=== PATIENT | male | born 1945 | race Caucasian/White ===

== ENCOUNTER 2016-09-11 14:28 | Inpatient (IN) ==
[2016-09-11] MEDS ORDERED: *HR* OxyCODONE Immed Rel 5 MG TABLET PO PRN (17:17)
[2016-09-11] MEDS ORDERED: Acetaminophen 325 MG TABLET PO PRN (17:17)
[2016-09-11] MEDS ORDERED: Bisacodyl 10 MG RECTAL SUPPOSITORY RC PRN (17:17)
[2016-09-11] MEDS ORDERED: Ondansetron ODT 4 MG TAB.RAPDIS PO PRN (17:17)
[2016-09-11] MEDS ORDERED: Albuterol 2.5 MG/3 ML NEBULIZER IH PRN (17:17)
[2016-09-11] MEDS ORDERED: Benzonatate 100 MG CAPSULE PO PRN (17:17)
[2016-09-11] MEDS: Linezolid 600 MG TABLET PO SCH (21:12)
[2016-09-11] MEDS: *HR* OxyCODONE Immed Rel 5 MG TABLET PO PRN (21:12)
[2016-09-11] MEDS: LevETIRAcetam 250 MG TABLET PO SCH (21:13)
[2016-09-11] MEDS: Ipratropium/Albuterol Neb 3 ML IH SCH (22:03)
[2016-09-11] MEDS: Budesonide/Formoterol 160/4.5 MDI IH SCH (22:03)
[2016-09-12] MEDS: MethylPREDNISolone 40 MG/ML VIAL IVP SCH ×3 (00:32→18:11)
[2016-09-12] MEDS: Ipratropium/Albuterol Neb 3 ML IH SCH ×5 (04:00→18:07)
[2016-09-12] MEDS ORDERED: *HR* Enoxaparin 40 MG/0.4 ML SYRINGE SQ SCH (06:00)
[2016-09-12 06:32] LABS: Basophils % 0.3 %; Eosinophils % 0.1 %; Hematocrit 32.1 % (37.5-50.1); Hemoglobin 10.9 g/dL (12.9-16.9); Immature Granulocytes % 2.9 % (0-4); Lymphocytes # 0.7 K/mcL (0.6-4.6); Lymphocytes % 6.3 %; Mean Corpuscular Hemoglobin 30.4 pg (28.0-33.3); Mean Corpuscular Volume 89.4 fL (83.0-100.0); Monocytes # 0.4 K/mcL (0.0-1.3); Monocytes % 3.7 %; Neutrophils # 9.6 K/mcL (1.6-8.9); Platelet Count 393 K/mcL (140-400); Red Blood Count 3.59 M/mcL (4.19-5.50); Red Cell Distribution Width 14.9 % (11.5-14.5); Segmented Neutrophils % 86.7 %
[2016-09-12 06:50] LABS: INR 1.1; Prothrombin Time 11.8 Seconds (9.4-12.1)
[2016-09-12 06:51] LABS: Activated Partial Thrombo Time 27.4 Seconds (26.0-36.0)
[2016-09-12 08:15] LABS: BUN/Creatinine Ratio 26 (6-26); Blood Urea Nitrogen 21 mg/dL (8-26); Calcium 8.7 mg/dL (8.6-10.8); Carbon Dioxide 19 mEq/L (19-29); Chloride 104 mEq/L (98-109); Glucose 107 mg/dL (70-99); Osmolality,Calculated 281 (280-300); Potassium 4.4 mEq/L (3.5-4.5); Sodium 134 mEq/L (136-145); eGFR For African Americans > 60 (> 60); eGFR For Non-African Americans > 60 (> 60)
[2016-09-12] MEDS: *HR* OxyCODONE Immed Rel 5 MG TABLET PO PRN ×2 (08:38→20:48)
[2016-09-12] MEDS: Aspirin 81 MG TAB.CHEW PO SCH (08:38)
[2016-09-12] MEDS: NIFEdipine XL (24 HR) 30 MG TAB.ER.24 PO SCH (08:38)
[2016-09-12] MEDS: Linezolid 600 MG TABLET PO SCH ×2 (08:39→20:48)
[2016-09-12] MEDS: Sennosides 8.6 MG TABLET PO SCH (08:39)
[2016-09-12] MEDS: LevETIRAcetam 250 MG TABLET PO SCH ×2 (08:39→20:49)
[2016-09-12] MEDS: Budesonide/Formoterol 160/4.5 MDI IH SCH ×2 (08:52→22:40)
[2016-09-12] MEDS ORDERED: Ipratropium/Albuterol Neb 3 ML IH PRN (16:13)
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
[2016-09-12] MEDS: Lactobacillus 1 EACH CAP.SPRINK PO SCH (20:49)
[2016-09-13] MEDS: *HR* OxyCODONE Immed Rel 5 MG TABLET PO PRN (02:58)
[2016-09-13] MEDS: *HR* Enoxaparin 40 MG/0.4 ML SYRINGE SQ SCH (06:12)
[2016-09-13] MEDS: NIFEdipine XL (24 HR) 30 MG TAB.ER.24 PO SCH (10:40)
[2016-09-13] MEDS: Aspirin 81 MG TAB.CHEW PO SCH (10:40)
[2016-09-13] MEDS: Linezolid 600 MG TABLET PO SCH ×2 (10:41→21:14)
[2016-09-13] MEDS: Lactobacillus 1 EACH CAP.SPRINK PO SCH ×2 (10:41→21:14)
[2016-09-13] MEDS: Sennosides 8.6 MG TABLET PO SCH (10:41)
[2016-09-13] MEDS: LevETIRAcetam 250 MG TABLET PO SCH ×2 (10:41→21:14)
[2016-09-13] MEDS: Budesonide/Formoterol 160/4.5 MDI IH SCH ×2 (12:01→22:03)
[2016-09-14] MEDS: *HR* Enoxaparin 40 MG/0.4 ML SYRINGE SQ SCH (05:54)
[2016-09-14] MEDS: Budesonide/Formoterol 160/4.5 MDI IH SCH ×2 (08:37→22:43)
[2016-09-14] MEDS: Aspirin 81 MG TAB.CHEW PO SCH (09:51)
[2016-09-14] MEDS: Lactobacillus 1 EACH CAP.SPRINK PO SCH ×2 (09:51→21:04)
[2016-09-14] MEDS: NIFEdipine XL (24 HR) 30 MG TAB.ER.24 PO SCH (09:51)
[2016-09-14] MEDS: Linezolid 600 MG TABLET PO SCH ×2 (09:51→21:05)
[2016-09-14] MEDS: Sennosides 8.6 MG TABLET PO SCH (09:52)
[2016-09-14] MEDS: LevETIRAcetam 250 MG TABLET PO SCH ×2 (09:52→21:04)
--- NOTE | 2016-09-14 12:45 | Internal Med Progress Note ---
Date of Encounter: 09/14/16 Time of Encounter: 12:35 - Assessment and plan (1) Left acetabular fracture Current Visit: Yes Status: Acute Assessment and plan: September 14. He has an appointment with [facility] [facility] September 17. Qualifiers: Sublocation of acetabulum: unspecified portion of acetabulum Fracture type : closed Fracture alignment: nondisplaced Fracture healing: with routine healing Qualified Code(s): S32.402D - Unspecified fracture of left acetabulum , subsequent encounter for fracture with routine healing (2) Shoulder fracture, left Current Visit: Yes Status: Acute Assessment and plan: September 14. As above. Qualifiers: Encounter type: subsequent encounter Fracture healing: with routine healing Qualified Code(s): S42.92XD - Fracture of left shoulder girdle, part unspecified, subsequent encounter for fracture with routine healing (3) Pneumonia Current Visit: No Status: Acute Assessment and plan: September 14. We will check blood work in a.m. and discontinue antibiotics if stable. Qualifiers: Pneumonia type: due to unspecified organism Laterality: bilateral Lung location: lower lobe of lung Qualified Code(s): J18.9 - Pneumonia, unspecified organism (4) HTN (hypertension) Current Visit: No Status: Chronic Assessment and plan: September 14. Continue Lopressor, Cozaar, and Procardia. Blood pressures show significant fluctuation. Qualifiers: Hypertension type: essential hypertension Qualified Code(s): I10 - Essential (primary) hypertension - Subjective Interval history: September 14. He has no new complaints and feels stronger - Constitutional Vitals: Temp Pulse Resp BP Pulse Ox 98.1 F 86 16 143/80 96 09/13/16 19:12 09/14/16 09:00 09/14/16 09:00 09/14/16 09:00 09/14/16 09:00 Exam: He is resting comfortably in bed and appears in no pain. His affect is bright and cheerful. I reviewed his medications and lab results. Internal Medicine: Result - Labs CBC & Chem 7: 09/12/16 06:15 09/12/16 06:15 - ABG Interpretation ABG results: PT/INR, D-dimer PT 11.8 Seconds (9.4-12.1) 09/12/16 06:15 - VTE Documentation of Mechanical Device: Graduated compression elastic hosiery Consult Discharge Plan - Plan Referrals: Aiyana Darden DO [Primary Care Provider] - 1 week
[2016-09-14] MEDS: *HR* OxyCODONE Immed Rel 5 MG TABLET PO PRN ×2 (12:46→23:19)
[2016-09-15] MEDS: *HR* Enoxaparin 40 MG/0.4 ML SYRINGE SQ SCH (07:07)
[2016-09-15] MEDS: *HR* OxyCODONE Immed Rel 5 MG TABLET PO PRN (07:07)
[2016-09-15] MEDS: Aspirin 81 MG TAB.CHEW PO SCH (09:43)
[2016-09-15] MEDS: LevETIRAcetam 250 MG TABLET PO SCH ×2 (09:43→21:20)
[2016-09-15] MEDS: Lactobacillus 1 EACH CAP.SPRINK PO SCH ×2 (09:44→21:20)
[2016-09-15] MEDS: NIFEdipine XL (24 HR) 30 MG TAB.ER.24 PO SCH (09:44)
[2016-09-15] MEDS: Linezolid 600 MG TABLET PO SCH ×2 (09:45→21:20)
[2016-09-15] MEDS: Sennosides 8.6 MG TABLET PO SCH (09:45)
[2016-09-15] MEDS: Budesonide/Formoterol 160/4.5 MDI IH SCH ×2 (10:51→22:22)
[2016-09-16] MEDS: *HR* OxyCODONE Immed Rel 5 MG TABLET PO PRN ×3 (00:29→21:08)
[2016-09-16] MEDS: Lactobacillus 1 EACH CAP.SPRINK PO SCH (08:01)
[2016-09-16] MEDS: *HR* Enoxaparin 40 MG/0.4 ML SYRINGE SQ SCH (08:01)
[2016-09-16] MEDS: NIFEdipine XL (24 HR) 30 MG TAB.ER.24 PO SCH (08:01)
[2016-09-16] MEDS: Aspirin 81 MG TAB.CHEW PO SCH (08:01)
[2016-09-16] MEDS: Linezolid 600 MG TABLET PO SCH (08:02)
[2016-09-16] MEDS: Sennosides 8.6 MG TABLET PO SCH (08:02)
[2016-09-16] MEDS: LevETIRAcetam 250 MG TABLET PO SCH ×2 (08:02→21:10)
[2016-09-16] MEDS: Budesonide/Formoterol 160/4.5 MDI IH SCH ×2 (10:22→22:04)
--- NOTE | 2016-09-16 11:59 | Internal Med Progress Note ---
Date of Encounter: 09/16/16 Time of Encounter: 11:50 - Assessment and plan (1) Left acetabular fracture Current Visit: Yes Status: Acute Assessment and plan: September 14. He has an appointment with [facility] staff September 17. September 16. He is scheduled to see Dr. Day of [facility] this afternoon. Qualifiers: Sublocation of acetabulum: unspecified portion of acetabulum Fracture type : closed Fracture alignment: nondisplaced Fracture healing: with routine healing Qualified Code(s): S32.402D - Unspecified fracture of left acetabulum , subsequent encounter for fracture with routine healing (2) Shoulder fracture, left Current Visit: Yes Status: Acute Assessment and plan: September 14. As above. September 16. He sees the orthopedist today. Qualifiers: Encounter type: subsequent encounter Fracture healing: with routine healing Qualified Code(s): S42.92XD - Fracture of left shoulder girdle, part unspecified, subsequent encounter for fracture with routine healing (3) Pneumonia Current Visit: No Status: Acute Assessment and plan: September 14. We will check blood work in a.m. and discontinue antibiotics if stable. September 16. We will discontinue antibiotics. Qualifiers: Pneumonia type: due to unspecified organism Laterality: bilateral Lung location: lower lobe of lung Qualified Code(s): J18.9 - Pneumonia, unspecified organism (4) HTN (hypertension) Current Visit: No Status: Chronic Assessment and plan: September 14. Continue Lopressor, Cozaar, and Procardia. Blood pressures show significant fluctuation. Qualifiers: Hypertension type: essential hypertension Qualified Code(s): I10 - Essential (primary) hypertension - Subjective Interval history: September 14. He has no new complaints and feels stronger September 16. He has no complaints and feels he is making progress. - Constitutional Vitals: Temp Pulse Resp BP Pulse Ox 97.9 F 79 16 113/57 94 09/15/16 18:00 09/15/16 18:00 09/15/16 22:22 09/15/16 18:00 09/15/16 22:22 Exam: He is resting comfortably in bed in no acute distress. His affect is bright and cheerful. I reviewed his medications and lab results. Internal Medicine: Result - Labs CBC & Chem 7: 09/12/16 06:15 09/12/16 06:15 - ABG Interpretation ABG results: PT/INR, D-dimer PT 11.8 Seconds (9.4-12.1) 09/12/16 06:15 - VTE Documentation of Mechanical Device: Graduated compression elastic hosiery Consult Discharge Plan - Plan Referrals: Aiyana Darden DO [Primary Care Provider] - 1 week
[2016-09-17] MEDS: *HR* Enoxaparin 40 MG/0.4 ML SYRINGE SQ SCH (06:45)
[2016-09-17] MEDS: Sennosides 8.6 MG TABLET PO SCH (08:21)
[2016-09-17] MEDS: LevETIRAcetam 250 MG TABLET PO SCH ×2 (09:05→22:35)
[2016-09-17] MEDS: NIFEdipine XL (24 HR) 30 MG TAB.ER.24 PO SCH (09:06)
[2016-09-17] MEDS: Aspirin 81 MG TAB.CHEW PO SCH (09:07)
[2016-09-17] MEDS: Budesonide/Formoterol 160/4.5 MDI IH SCH ×2 (10:12→23:24)
[2016-09-17] MEDS: *HR* OxyCODONE Immed Rel 5 MG TABLET PO PRN (22:47)
[2016-09-18] MEDS: *HR* Enoxaparin 40 MG/0.4 ML SYRINGE SQ SCH (06:01)
[2016-09-18] MEDS: Sennosides 8.6 MG TABLET PO SCH (08:37)
[2016-09-18] MEDS: LevETIRAcetam 250 MG TABLET PO SCH ×2 (08:37→21:31)
[2016-09-18] MEDS: NIFEdipine XL (24 HR) 30 MG TAB.ER.24 PO SCH (08:37)
[2016-09-18] MEDS: Aspirin 81 MG TAB.CHEW PO SCH (08:38)
[2016-09-18] MEDS: Budesonide/Formoterol 160/4.5 MDI IH SCH ×2 (10:08→21:56)
[2016-09-18] MEDS: *HR* OxyCODONE Immed Rel 5 MG TABLET PO PRN (21:33)
[2016-09-19] MEDS: *HR* OxyCODONE Immed Rel 5 MG TABLET PO PRN ×2 (01:08→20:38)
[2016-09-19] MEDS: *HR* Enoxaparin 40 MG/0.4 ML SYRINGE SQ SCH (06:19)
[2016-09-19] MEDS: LevETIRAcetam 250 MG TABLET PO SCH ×2 (08:33→20:36)
[2016-09-19] MEDS: Sennosides 8.6 MG TABLET PO SCH (08:33)
[2016-09-19] MEDS: Aspirin 81 MG TAB.CHEW PO SCH (08:33)
[2016-09-19] MEDS: NIFEdipine XL (24 HR) 30 MG TAB.ER.24 PO SCH (08:33)
[2016-09-19] MEDS: Budesonide/Formoterol 160/4.5 MDI IH SCH ×2 (09:52→22:55)
--- NOTE | 2016-09-19 15:52 | Internal Med Progress Note ---
Date of Encounter: 09/19/16 Time of Encounter: 15:40 - Assessment and plan (1) Left acetabular fracture Current Visit: Yes Status: Acute Assessment and plan: September 14. He has an appointment with [facility] staff September 17. September 16. He is scheduled to see Dr. Day of [facility] this afternoon. September 19. He was told to remain NWB. His reports she received a call from a [facility] the evening of September 17 commenting a subcapital fracture may have been seen on original x-rays. She will call [facility] tomorrow after the films have been reviewed Qualifiers: Sublocation of acetabulum: unspecified portion of acetabulum Fracture type : closed Fracture alignment: nondisplaced Fracture healing: with routine healing Qualified Code(s): S32.402D - Unspecified fracture of left acetabulum , subsequent encounter for fracture with routine healing (2) Shoulder fracture, left Current Visit: Yes Status: Acute Assessment and plan: September 14. As above. September 16. He sees the orthopedist today. September 19. Continue immobilization sling Qualifiers: Encounter type: subsequent encounter Fracture healing: with routine healing Qualified Code(s): S42.92XD - Fracture of left shoulder girdle, part unspecified, subsequent encounter for fracture with routine healing (3) Pneumonia Current Visit: No Status: Acute Assessment and plan: September 14. We will check blood work in a.m. and discontinue antibiotics if stable. September 16. We will discontinue antibiotics. Qualifiers: Pneumonia type: due to unspecified organism Laterality: bilateral Lung location: lower lobe of lung Qualified Code(s): J18.9 - Pneumonia, unspecified organism (4) HTN (hypertension) Current Visit: No Status: Chronic Assessment and plan: September 14. Continue Lopressor, Cozaar, and Procardia. Blood pressures show significant fluctuation. September 19. Continue present medications. Blood pressures have stabilized. Qualifiers: Hypertension type: essential hypertension Qualified Code(s): I10 - Essential (primary) hypertension - Subjective Interval history: September 14. He has no new complaints and feels stronger September 16. He has no complaints and feels he is making progress. September 19. He has no new complaints - Constitutional Vitals: Temp Pulse Resp BP Pulse Ox 97.8 F 89 15 135/82 97 09/19/16 06:54 09/19/16 06:54 09/19/16 09:53 09/19/16 06:54 09/19/16 09:53 Exam: He is resting comfortably in bed and appears in no acute distress. His affect is bright and cheerful. I reviewed his medications and lab results. Internal Medicine: Result - Labs CBC & Chem 7: 09/12/16 06:15 09/12/16 06:15 - ABG Interpretation ABG results: PT/INR, D-dimer PT 11.8 Seconds (9.4-12.1) 09/12/16 06:15 - VTE Documentation of Mechanical Device: Graduated compression elastic hosiery Consult Discharge Plan - Plan Referrals: Aiyana Darden DO [Primary Care Provider] - 1 week
[2016-09-20] MEDS: *HR* Enoxaparin 40 MG/0.4 ML SYRINGE SQ SCH (06:17)
[2016-09-20] MEDS: Aspirin 81 MG TAB.CHEW PO SCH (08:23)
[2016-09-20] MEDS: NIFEdipine XL (24 HR) 30 MG TAB.ER.24 PO SCH (08:24)
[2016-09-20] MEDS: LevETIRAcetam 250 MG TABLET PO SCH ×2 (08:24→20:04)
[2016-09-20] MEDS: Sennosides 8.6 MG TABLET PO SCH (08:24)
[2016-09-20] MEDS: Budesonide/Formoterol 160/4.5 MDI IH SCH ×2 (10:55→20:16)
[2016-09-20] MEDS: *HR* OxyCODONE Immed Rel 5 MG TABLET PO PRN (20:05)
[2016-09-21] MEDS: *HR* OxyCODONE Immed Rel 5 MG TABLET PO PRN ×2 (01:27→21:30)
[2016-09-21] MEDS: *HR* Enoxaparin 40 MG/0.4 ML SYRINGE SQ SCH (06:21)
[2016-09-21] MEDS: Aspirin 81 MG TAB.CHEW PO SCH (10:10)
[2016-09-21] MEDS: NIFEdipine XL (24 HR) 30 MG TAB.ER.24 PO SCH (10:11)
[2016-09-21] MEDS: Sennosides 8.6 MG TABLET PO SCH (10:11)
[2016-09-21] MEDS: LevETIRAcetam 250 MG TABLET PO SCH ×2 (10:12→20:53)
[2016-09-21] MEDS: Budesonide/Formoterol 160/4.5 MDI IH SCH (10:42)
[2016-09-21] MEDS: Nystatin SUSP 5 ML UD.LIQ PO SCH ×3 (13:51→20:51)
--- NOTE | 2016-09-21 14:34 | Internal Med Progress Note ---
Date of Encounter: 09/21/16 Time of Encounter: 14:25 - Assessment and plan (1) Left acetabular fracture Current Visit: Yes Status: Acute Assessment and plan: September 14. He has an appointment with [facility] staff September 17. September 16. He is scheduled to see Dr. Day of [facility] this afternoon. September 19. He was told to remain NWB. His reports she received a call from a [facility] the evening of September 17 commenting a subcapital fracture may have been seen on original x-rays. She will call [facility] tomorrow after the films have been reviewed September 21. Continue nonweightbearing status. He will need a hospital bed, drop arm bedside commode, wheelchair with removable arm, and a sliding board since he is nonweightbearing and has a left humerus fracture also. Qualifiers: Sublocation of acetabulum: unspecified portion of acetabulum Fracture type : closed Fracture alignment: nondisplaced Fracture healing: with routine healing Qualified Code(s): S32.402D - Unspecified fracture of left acetabulum , subsequent encounter for fracture with routine healing (2) Shoulder fracture, left Current Visit: Yes Status: Acute Assessment and plan: September 14. As above. September 16. He sees the orthopedist today. September 19. Continue immobilization sling Qualifiers: Encounter type: subsequent encounter Fracture healing: with routine healing Qualified Code(s): S42.92XD - Fracture of left shoulder girdle, part unspecified, subsequent encounter for fracture with routine healing (3) Pneumonia Current Visit: No Status: Acute Assessment and plan: September 14. We will check blood work in a.m. and discontinue antibiotics if stable. September 16. We will discontinue antibiotics. Qualifiers: Pneumonia type: due to unspecified organism Laterality: bilateral Lung location: lower lobe of lung Qualified Code(s): J18.9 - Pneumonia, unspecified organism (4) HTN (hypertension) Current Visit: No Status: Chronic Assessment and plan: September 14. Continue Lopressor, Cozaar, and Procardia. Blood pressures show significant fluctuation. September 19. Continue present medications. Blood pressures have stabilized. Qualifiers: Hypertension type: essential hypertension Qualified Code(s): I10 - Essential (primary) hypertension - Subjective Interval history: September 14. He has no new complaints and feels stronger September 16. He has no complaints and feels he is making progress. September 19. He has no new complaints September 21. He has no new complaints. He is anticipating discharge home tomorrow. - Constitutional Vitals: Temp Pulse Resp BP Pulse Ox 97.6 F 81 14 133/75 96 09/21/16 06:18 09/21/16 10:08 09/21/16 10:42 09/21/16 10:08 09/21/16 10:42 Exam: He is resting comfortably in bed and appears in no acute distress. He denies pain. He is wearing JACQUELINE hose. There is no extremity edema. His affect is bright and cheerful. I reviewed his medications and lab results. Internal Medicine: Result - Labs CBC & Chem 7: 09/12/16 06:15 09/12/16 06:15 - ABG Interpretation ABG results: PT/INR, D-dimer PT 11.8 Seconds (9.4-12.1) 09/12/16 06:15 - VTE Documentation of Mechanical Device: Graduated compression elastic hosiery Consult Discharge Plan - Plan Referrals: Aiyana Darden DO [Primary Care Provider] - 1 week
[2016-09-22] MEDS: *HR* OxyCODONE Immed Rel 5 MG TABLET PO PRN (01:18)
[2016-09-22] MEDS: *HR* Enoxaparin 40 MG/0.4 ML SYRINGE SQ SCH (06:56)
[2016-09-22] MEDS: LevETIRAcetam 250 MG TABLET PO SCH (08:10)
[2016-09-22] MEDS: Nystatin SUSP 5 ML UD.LIQ PO SCH ×2 (08:10→14:16)
[2016-09-22] MEDS: NIFEdipine XL (24 HR) 30 MG TAB.ER.24 PO SCH (08:10)
[2016-09-22] MEDS: Sennosides 8.6 MG TABLET PO SCH (08:11)
[2016-09-22] MEDS: Aspirin 81 MG TAB.CHEW PO SCH (08:11)
[2016-09-22 08:28] VITALS: BP 126/75
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
--- NOTE | 2016-09-22 09:54 | Physician Discharge Referral ---
Home Health/Hosp Referral Info Transfer to: Home Health Attending Provider: Artemio Provider in Charge Post Discharge: PCP Stacy) - Diagnosis (1) Left acetabular fracture Priority: Primary Status: Acute (2) Shoulder fracture, left Priority: Primary Status: Acute (3) Pneumonia Priority: Secondary Status: Resolved (4) HTN (hypertension) Priority: Secondary Status: Chronic - Respiratory Orders Smoking Cessation: Smoking cessation has been advised. For more information, call the [place] Tobacco Quit Line at 2-695-UVJI-NOW. - Diet/Nutrition Diet/Nutrition Orders: Regular - Activity Activity Orders: Walker (TTWB left leg until cleared by orthopedist) - Services Needed Following services are medically necessary services: Nursing, Home Health Aide, Physical Therapy, Occupational Therapy - Transfer Medications Home Medications: Albuterol Sulfate [Proair Hfa] 1 puff IH Q6H PRN 12/13/15 [History] Budesonide/Formoterol 160/4.5 [Symbicort 160/4.5] 1 puff IH BIDR 12/13/15 [ History] Losartan Potassium [Cozaar] 50 mg PO DAILY 12/13/15 [History] Metoprolol [Lopressor] 25 mg PO BID 12/13/15 [History] Montelukast [Singulair] 10 mg PO DAILY 12/13/15 [History] NIFEdipine [Nifedipine ER] 30 mg PO DAILY 12/13/15 [History] Docusate [Colace] 200 mg PO BID 06/24/16 [History] Aspirin 81 mg PO DAILY #30 tab.chew 06/26/16 [Rx] Acetaminophen [Tylenol] 325 mg PO Q4H PRN 09/06/16 [History] Bisacodyl [Dulcolax] 10 mg RC DAILY PRN 09/06/16 [History] Enoxaparin [Lovenox] 40 mg SQ DAILY 09/06/16 [History] LevETIRAcetam [Keppra] 500 mg PO BID 09/06/16 [History] Ondansetron ODT [Zofran ODT] 4 mg PO Q6H PRN 09/06/16 [History] Polyethylene Glycol 3350 [Smoothlax] 17 gm PO DAILY 09/06/16 [History] Sennosides [Senna] 8.6 mg PO DAILY 09/06/16 [History] Simvastatin [Zocor] 80 mg PO HS 09/06/16 [History] OxyCODONE Immed Rel [Roxicodone 5 MG] 10 mg PO Q4H PRN #30 tablet 09/11/16 [Rx] Oxycodone HCl 10 mg PO Q4H PRN #30 tablet 09/11/16 [Rx] Oxycodone HCl [Oxaydo] 5 mg PO Q4H PRN #20 tablet.orl 09/11/16 [Rx] Allergies/Adverse Reactions: Allergies atorvastatin [From Lipitor] Adverse Reaction (Verified 12/13/15 16:34) See Comments patient states it makes him feel bad codeine Adverse Reaction (Verified 12/13/15 16:34) Gastrointestinal Upset lisinopril Adverse Reaction (Verified 12/13/15 16:34) Cough Certification: Further, I certify that my clinical findings support that this patient is homebound (i.e. absences from home require considerable and taxing effort and are for medical reasons or zoroastrianism services or infrequently or short duration when for other reasons) because: Homebound Reason: Leaving home requires considerable and taxing effort due to condition (TTWB left leg, left shoulder fracture) Attestation: My signature below is to certify that this patient is under my care and that I, or nurse practitioner, or a physician's electrician station assistant working with me, has a face-to -face encounter with this patient.
[2016-09-22] MEDS: Budesonide/Formoterol 160/4.5 MDI IH SCH (11:04)
== END 2016-09-22 18:00 | disposition home health service (06) | DRG 559 ==
LOC: INPPIK 15:41
PROVIDERS: ADMIT Internal Medicine; ATTEND Internal Medicine